=== PATIENT | male | born 1955 | race Two or more races ===

== ENCOUNTER 2018-03-11 11:15 | Emergency (ER) | payer SELFPAY ==
[2018-03-11] MEDS ORDERED: Hydrogen Peroxide 3% Soln (480ml) TP ONE (11:33)
[2018-03-11] MEDS ORDERED: Lidocaine 1% Inj (20ml) IJ ONE (12:00)
--- NOTE | 2018-03-11 12:05 | ED PDOC ---
HPI: General Adult Time Seen by Provider: 03/11/18 11:42 Chief Complaint (Nursing): Trauma History Per: Patient Onset/Duration Of Symptoms: Days (1) Current Symptoms Are (Timing): Still Present Additional Complaint(s): Tripped and fell and hit left ear against side walk last night, sustaining laceration to left outer ear. No LOC, no headache or dizziness Past Medical History Vital Signs: Last Vital Signs Temp 98.2 F 03/11/18 11:20 Pulse 77 03/11/18 11:20 Resp 19 03/11/18 11:20 BP 156/99 H 03/11/18 11:20 Pulse Ox 98 03/11/18 11:20 - Medical History PMH: HTN - Family History Family History: States: Unknown Family Hx - Home Medications Home Medications: Ambulatory Orders Medication Instructions Recorded Ciprofloxacin HCl [Cipro] 500 mg PO BID #20 tab 03/11/18 - Allergies Allergies/Adverse Reactions: Allergies Allergy/AdvReac Type Severity Reaction Status Date / Time No Known Allergies Allergy Verified 03/11/18 11:30 Review of Systems Constitutional: Negative for: Fever ENT: Positive for: Ear Pain Physical Exam - Physical Exam Appears: Positive for: Non-toxic, No Acute Distress ENT: Positive for: Other (Left ear 2 cm V shaped avulsion lac lower pinna with cartilage exposed. TM obscured by blood in canal) - ECG O2 Sat by Pulse Oximetry: 98 Medical Decision Making Medical Decision Making: Discussed with Dr. George Wound irrigated copiously with NS 500 ml Laceration closed with 5-0 nylon Discussed possibility of infection with patient as cartilage in ear is not well vascularized. Aware of earliy signs of infection including swelling, purulent drainage and fever. Advised to return immediately if any signs of infection. Will start on Cipro 500 mg BID x 10 days and have pt f/u with Dr. George Procedures - Time-Out Type of Procedure: Left ear Correct Patient (with visual ID + MR# on ID Band): Yes Correct Procedure: Yes Physician Name: Ramón - Laceration/Wound Repair Left Ear Wound Length (cm): 2 Wound's Depth, Shape: flap (V shaped flap lower pinna over cartilage but not through cartilage) Irrigated w/ Saline (ccs): 500 Anesthesia: 1% Lidocaine Volume Anesthetic (ccs): 3 Wound Repaired With: Sutures Suture Size/Type: 5:0, nylon Number of Sutures: 7 Wound Complexity: Simple Disposition - Clinical Impression Clinical Impression: Laceration of ear - Patient ED Disposition Is Patient to be Admitted: No Counseled Patient/Family Regarding: Studies Performed, Diagnosis, Need For Followup, Rx Given - Disposition Referrals: Eitan George MD [Medical Doctor] - Disposition: Routine/Home Disposition Time: 14:04 Condition: FAIR Prescriptions: Ciprofloxacin HCl [Cipro] 500 mg PO BID #20 tab Instructions: Laceration Repair With Stitches (DC) Forms: [employer] (Swazi)
[2018-03-11] MEDS ORDERED: Lidocaine 1% Inj (20ml) ONE (12:12)
--- NOTE | 2018-03-11 13:46 | CT ---
Date of service: 03/11/2018 PROCEDURE: CT HEAD WITHOUT CONTRAST. HISTORY: r/o bleed COMPARISON: None available. TECHNIQUE: Axial computed tomography images were obtained through the head/brain without intravenous contrast. Radiation dose: Total exam DLP = 915.47 mGy-cm. This CT exam was performed using one or more of the following dose reduction techniques: Automated exposure control, adjustment of the mA and/or kV according to patient size, and/or use of iterative reconstruction technique. FINDINGS: HEMORRHAGE: No intracranial hemorrhage. BRAIN: Normal coleman-white matter differentiation and density are appreciated throughout the cerebrum and cerebellum with the brainstem appearing unremarkable as well. There is no mass effect. There is no suspicious extra-axial fluid collection and the midline brain anatomy appears diffusely unremarkable. VENTRICLES: Unremarkable. No hydrocephalus. CALVARIUM: Unremarkable. PARANASAL SINUSES: Unremarkable as visualized. No significant inflammatory changes. MASTOID AIR CELLS: Unremarkable as visualized. No inflammatory changes. OTHER FINDINGS: None. IMPRESSION: Unremarkable noncontrast CT of the Head.
[2018-03-11 14:21] VITALS: BP 152/84; PULSE 72; RESP 18; TEMP 98.4; O2SAT 100
== END 2018-03-11 14:12 | disposition home or self-care (01) ==
LOC: H.ER 11:15
DX: S01.312A Laceration without foreign body of left ear, initial encounter (principal); W19.XXXA Unspecified fall, initial encounter; Y92.480 Sidewalk as the place of occurrence of the external cause